=== PATIENT | male | born 1960 | race Caucasian/White ===

== ENCOUNTER → 2019-10-31 09:46 | Outpatient (CLI) | payer OTHER, SELFPAY ==
[2019-10-31 10:28] LABS: Add Manual Diff / Slide Review NO; Basophils Absolute Auto 100 /uL (0-100); Basophils Percent Auto 1.4 % (0-2); Eosinophils Absolute Auto 600 /uL (0-450); Eosinophils Percent Auto 16.8 % (2-4); Hematocrit 39.3 % (41-53); Hemoglobin 12.6 g/dL (13.5-17.5); Lymphocytes Absolute Auto 700 /uL (1100-4500); Lymphocytes Percent Auto 19.9 % (25-40); Mean Corpuscular Hemoglobin 23.8 PG (26-34); Mean Corpuscular Volume 74.5 fL (80-100); Monocytes Absolute Auto 500 /uL (0-900); Monocytes Percent Auto 12.8 % (3-14); Neutrophils Absolute Auto 1800 /uL (1500-7000); Neutrophils Percent Auto 49.1 % (50-75); Platelet Count 301 X10^3/uL (150-400); Red Blood Cell Count 5.27 X10^6/uL (4.5-5.9); Red Cell Distribution Width 17.6 % (11.6-14.8); White Blood Cell Count 3.7 X10^3/uL (4.5-11.0)
[2019-10-31 10:53] LABS: Alanine Aminotransferase 50 IU/L (<50); Albumin 4.2 g/dL (3.5-5.0); Albumin Globulin Ratio 1.4 (1.0-2.8); Alkaline Phosphatase 105 U/L (38-126); Aspartate Aminotransferase 54 IU/L (17-59); Bilirubin Total 0.3 mg/dL (0.2-1.3); Blood Urea Nitrogen 19 mg/dL (9-20); Calcium 9.4 mg/dL (8.4-10.2); Carbon Dioxide 28 mmol/L (22-32); Chloride 104 mmol/L (98-107); Cholesterol 133 mg/dL (140-199); Estimated Glomerular Filt Rate > 60.0 mL/min (>60); Glucose 96 mg/dL (70-100); HDL Cholesterol 22 mg/dL (40-60); HEMOLYSIS < 15 (0-50); LDL Cholesterol Calculated 89 mg/dL (<100); Potassium 4.6 mmol/L (3.4-5.1); Sodium 140 mmol/L (137-145); Total Protein 7.2 g/dL (6.3-8.2); Triglycerides 108 mg/dL (35-150)
[2019-10-31 11:22] LABS: HEMOLYSIS < 15 (0-50); Iron 43 ug/dL (49-181)
[2019-10-31 11:32] LABS: Percent Iron Saturation 9 % (20-50); Total Iron Binding Capacity 469 ug/dL (261-462); Transferrin 364 mg/dL (206-381)
== END ==
PROVIDERS: PCP Internal Medicine; Referring Provider Internal Medicine; Visit Provider Internal Medicine
DX: Z00.00 Encounter for general adult medical examination without abnormal findings (principal); K90.0 Celiac disease
CPT/HCPCS: 36415; 80053; 80061; 83540; 83550; 85025

== ENCOUNTER → 2020-01-17 13:25 | Outpatient (CLI) | payer OTHER, SELFPAY ==
[2020-01-17 14:43] LABS: Add Manual Diff / Slide Review NO; Basophils Absolute Auto 100 /uL (0-100); Basophils Percent Auto 1.3 % (0-2); Eosinophils Absolute Auto 400 /uL (0-450); Eosinophils Percent Auto 8.5 % (2-4); Hematocrit 39.6 % (41-53); Hemoglobin 12.7 g/dL (13.5-17.5); Lymphocytes Absolute Auto 800 /uL (1100-4500); Lymphocytes Percent Auto 19.1 % (25-40); Mean Corpuscular HGB Conc 32.2 % (30-36); Mean Corpuscular Hemoglobin 25.4 PG (26-34); Monocytes Absolute Auto 600 /uL (0-900); Monocytes Percent Auto 12.7 % (3-14); Neutrophils Absolute Auto 2600 /uL (1500-7000); Neutrophils Percent Auto 58.4 % (50-75); Platelet Count 306 X10^3/uL (150-400); Red Blood Cell Count 5.01 X10^6/uL (4.5-5.9); Red Cell Distribution Width 17.7 % (11.6-14.8); White Blood Cell Count 4.4 X10^3/uL (4.5-11.0)
[2020-01-17 14:54] LABS: Alanine Aminotransferase 30 IU/L (<50); Albumin 3.8 g/dL (3.5-5.0); Albumin Globulin Ratio 1.4 (1.0-2.8); Alkaline Phosphatase 82 U/L (38-126); Aspartate Aminotransferase 44 IU/L (17-59); Bilirubin Total 0.3 mg/dL (0.2-1.3); Bilirubin Unconjugated 0.1 mg/dL (0.0-1.1); Globulin 2.7 g/dL (1.7-4.1); HEMOLYSIS < 15 (0-50); Total Protein 6.5 g/dL (6.3-8.2)
== END ==
PROVIDERS: PCP Internal Medicine; Referring Provider Internal Medicine; Visit Provider Internal Medicine
DX: R74.8 Abnormal levels of other serum enzymes (principal); D72.829 Elevated white blood cell count, unspecified
CPT/HCPCS: 36415; 80076; 85025

== ENCOUNTER → 2020-03-29 16:05 | Outpatient (ROUT) | payer OTHER, SELFPAY ==
[2020-03-29 16:11] LABS: Add Manual Diff / Slide Review NO; Basophils Absolute Auto 100 /uL (0-100); Basophils Percent Auto 1.2 % (0-2); Eosinophils Absolute Auto 200 /uL (0-450); Eosinophils Percent Auto 4.8 % (2-4); Hematocrit 41.1 % (41-53); Hemoglobin 13.3 g/dL (13.5-17.5); Lymphocytes Absolute Auto 700 /uL (1100-4500); Lymphocytes Percent Auto 15.5 % (25-40); Mean Corpuscular HGB Conc 32.4 % (30-36); Mean Corpuscular Hemoglobin 26.6 PG (26-34); Mean Corpuscular Volume 82.2 fL (80-100); Monocytes Absolute Auto 600 /uL (0-900); Monocytes Percent Auto 12.5 % (3-14); Neutrophils Absolute Auto 3100 /uL (1500-7000); Platelet Count 268 X10^3/uL (150-400); Red Cell Distribution Width 16.4 % (11.6-14.8); White Blood Cell Count 4.7 X10^3/uL (4.5-11.0)
[2020-03-29 16:17] LABS: HEMOLYSIS 16 (0-50); Iron 88 ug/dL (49-181)
[2020-03-29 16:27] LABS: Percent Iron Saturation 21 % (20-50); Total Iron Binding Capacity 419 ug/dL (261-462); Transferrin 331 mg/dL (206-381)
== END ==
PROVIDERS: PCP Internal Medicine; Visit Provider Internal Medicine
DX: D64.9 Anemia, unspecified (principal)
CPT/HCPCS: 83540; 83550; 85025

== ENCOUNTER → 2021-01-29 14:44 | Outpatient (ROUT) | payer OTHER, SELFPAY ==
[2021-01-29 14:53] LABS: Add Manual Diff / Slide Review NO; Basophils Absolute Auto 0 /uL (0-100); Basophils Percent Auto 0.9 % (0-2); Eosinophils Absolute Auto 400 /uL (0-450); Eosinophils Percent Auto 9.7 % (2-4); Hematocrit 44.9 % (41-53); Hemoglobin 15.1 g/dL (13.5-17.5); Lymphocytes Absolute Auto 700 /uL (1100-4500); Lymphocytes Percent Auto 16.8 % (25-40); Mean Corpuscular HGB Conc 33.5 % (30-36); Mean Corpuscular Volume 89.5 fL (80-100); Monocytes Absolute Auto 500 /uL (0-900); Monocytes Percent Auto 12.6 % (3-14); Neutrophils Absolute Auto 2300 /uL (1500-7000); Platelet Count 258 X10^3/uL (150-400); Red Blood Cell Count 5.02 X10^6/uL (4.5-5.9); Red Cell Distribution Width 13.5 % (11.6-14.8); White Blood Cell Count 3.9 X10^3/uL (4.5-11.0)
[2021-01-29 14:58] LABS: HEMOLYSIS 16 (0-50); Iron 103 ug/dL (49-181)
[2021-01-29 15:03] LABS: Alanine Aminotransferase 39 IU/L (<50); Albumin 3.7 g/dL (3.5-5.0); Albumin Globulin Ratio 1.4 (1.0-2.8); Alkaline Phosphatase 80 U/L (38-126); Aspartate Aminotransferase 50 IU/L (17-59); BUN Creatinine Ratio 19.1 (6-22); Bilirubin Total 0.3 mg/dL (0.2-1.3); Blood Urea Nitrogen 17 mg/dL (9-20); Calcium 9.1 mg/dL (8.4-10.2); Carbon Dioxide 29 mmol/L (22-32); Chloride 105 mmol/L (98-107); Estimated Glomerular Filt Rate > 60.0 mL/min (>60); Globulin 2.6 g/dL (1.7-4.1); Glucose 82 mg/dL (70-100); HEMOLYSIS 18 (0-50); Potassium 4.3 mmol/L (3.4-5.1); Sodium 140 mmol/L (137-145); Total Protein 6.3 g/dL (6.3-8.2)
[2021-01-29 15:10] LABS: Percent Iron Saturation 26 % (20-50); Total Iron Binding Capacity 392 ug/dL (261-462); Transferrin 286 mg/dL (206-381)
== END ==
PROVIDERS: PCP Internal Medicine; Visit Provider Internal Medicine
DX: K90.0 Celiac disease (principal); D50.0 Iron deficiency anemia secondary to blood loss (chronic)
CPT/HCPCS: 80053; 83540; 83550; 85025

== ENCOUNTER → 2022-07-30 14:19 | Outpatient (CLI) | payer OTHER, SELFPAY ==
[2022-07-30 14:45] LABS: Hematocrit 39.3 % (41-53); Hemoglobin 13.3 g/dL (13.5-17.5); Mean Corpuscular HGB Conc 33.9 % (30-36); Mean Corpuscular Hemoglobin 28.6 PG (26-34); Mean Corpuscular Volume 84.4 fL (80-100); Platelet Count 276 X10^3/uL (150-400); Red Blood Cell Count 4.65 X10^6/uL (4.5-5.9); Red Cell Distribution Width 14.1 % (11.6-14.8); White Blood Cell Count 4.8 X10^3/uL (4.5-11.0)
[2022-07-30 20:01] LABS: TSH w/ Reflex to FT4 2.18 uIU/mL (0.47-4.68)
[2022-07-30 23:46] LABS: Alanine Aminotransferase 30 IU/L (<50); Albumin 4.1 g/dL (3.5-5.0); Albumin Globulin Ratio 1.5 (1.0-2.8); Alkaline Phosphatase 86 U/L (38-126); Aspartate Aminotransferase 40 IU/L (17-59); BUN Creatinine Ratio 25.6 (6-22); Bilirubin Total 0.2 mg/dL (0.2-1.3); Blood Urea Nitrogen 22 mg/dL (9-20); Calcium 8.8 mg/dL (8.4-10.2); Carbon Dioxide 29 mmol/L (22-32); Chloride 102 mmol/L (98-107); Cholesterol 124 mg/dL (140-199); Estimated Glomerular Filt Rate > 60 mL/min (>60); Globulin 2.7 g/dL (1.7-4.1); Glucose 71 mg/dL (80-110); HDL Cholesterol 24 mg/dL (40-60); HEMOLYSIS < 15 (0-50); LDL Cholesterol Calculated 73 mg/dL (<100); Potassium 4.4 mmol/L (3.4-5.1); Sodium 139 mmol/L (137-145); Total Protein 6.8 g/dL (6.3-8.2); Triglycerides 134 mg/dL (35-150)
[2022-07-31 00:16] LABS: Prostate Specific Antigen Scrn 1.88 ng/mL (0.1-4.0)
== END ==
PROVIDERS: PCP Internal Medicine; Referring Provider Internal Medicine; Visit Provider Internal Medicine
DX: Z00.00 Encounter for general adult medical examination without abnormal findings (principal); E78.5 Hyperlipidemia, unspecified; Z12.5 Encounter for screening for malignant neoplasm of prostate
CPT/HCPCS: 36415; 80053; 80061; 84443; 85027; G0103

== ENCOUNTER → 2023-07-29 08:42 | Outpatient (CLI) | payer OTHER, SELFPAY ==
[2023-07-29 09:56] LABS: Hematocrit 42.9 % (41-53); Hemoglobin 14.5 g/dL (13.5-17.5); Mean Corpuscular HGB Conc 33.8 % (30-36); Mean Corpuscular Hemoglobin 29.4 PG (26-34); Platelet Count 287 X10^3/uL (150-400); Red Blood Cell Count 4.93 X10^6/uL (4.5-5.9); Red Cell Distribution Width 14.4 % (11.6-14.8); White Blood Cell Count 5.5 X10^3/uL (4.5-11.0)
[2023-07-29 10:04] LABS: Alanine Aminotransferase 30 IU/L (<50); Albumin 4.5 g/dL (3.5-5.0); Albumin Globulin Ratio 1.4 (1.0-2.8); Alkaline Phosphatase 85 U/L (38-126); Aspartate Aminotransferase 46 IU/L (17-59); BUN Creatinine Ratio 21.7 (6-22); Bilirubin Total 0.5 mg/dL (0.2-1.3); Blood Urea Nitrogen 20 mg/dL (9-20); Calcium 9.6 mg/dL (8.4-10.2); Carbon Dioxide 30 mmol/L (22-32); Chloride 102 mmol/L (98-107); Cholesterol 122 mg/dL (140-199); Estimated Glomerular Filt Rate > 60 mL/min (>60); Globulin 3.2 g/dL (1.7-4.1); Glucose 85 mg/dL (80-110); HDL Cholesterol 29 mg/dL (40-60); HEMOLYSIS 18 (0-50); LDL Cholesterol Calculated 79 mg/dL (<100); Potassium 4.6 mmol/L (3.4-5.1); Sodium 138 mmol/L (137-145); Total Protein 7.7 g/dL (6.3-8.2); Triglycerides 70 mg/dL (35-150)
[2023-07-29 10:15] LABS: HEMOLYSIS < 15 (0-50); Iron 63 ug/dL (49-181)
[2023-07-29 10:24] LABS: Percent Iron Saturation 15 % (20-50); Total Iron Binding Capacity 409 ug/dL (261-462); Transferrin 327 mg/dL (206-381)
[2023-07-29 10:38] LABS: Ferritin 17 ng/mL (18-464)
== END ==
PROVIDERS: PCP Internal Medicine; Referring Provider Internal Medicine; Visit Provider Internal Medicine
DX: Z12.5 Encounter for screening for malignant neoplasm of prostate (principal); K90.0 Celiac disease; E78.5 Hyperlipidemia, unspecified; Z00.00 Encounter for general adult medical examination without abnormal findings; D50.9 Iron deficiency anemia, unspecified
CPT/HCPCS: 36415; 80053; 80061; 82728; 83540; 83550; 85027; G0103

== ENCOUNTER → 2024-01-11 11:32 | Outpatient (CLI) | payer OTHER, SELFPAY ==
--- NOTE | 2024-01-11 11:34 | DI.RAD.S_ITS ---
PROCEDURE: XR SKULL MIN 4V INDICATIONS: skull mass right TECHNIQUE: 4 view(s) of the skull acquired. COMPARISON: None. FINDINGS: Bones: No fractures. No suspicious bony lesions. Visualized sinuses appear clear. Soft tissues: No soft tissue calcifications. No suspicious soft tissue densities. IMPRESSION: Unremarkable skull radiographs Approved by: Asher Dalton M.D. on 01/11/2024 at 17:39
--- NOTE | 2024-01-11 11:34 | DI.RAD.S_ITS ---
PROCEDURE: XR TIBIA FUBULA RT 2V INDICATIONS: leg pain TECHNIQUE: 2 views of the tibia and fibula were acquired. COMPARISON: None. FINDINGS: Bones: No fractures or dislocations. No suspicious bony lesions. Soft tissues: No suspicious soft tissue calcifications or masses. IMPRESSION: No acute bony abnormality. Approved by: Asher Dalton M.D. on 01/11/2024 at 17:40
--- NOTE | 2024-01-11 11:34 | DI.RAD.S_ITS ---
PROCEDURE: XR KNEE RT 3V INDICATIONS: leg pain TECHNIQUE: 3 views of the knee were acquired. COMPARISON: None. FINDINGS: Bones: No fractures or dislocations. No suspicious bony lesions. Soft tissues: No joint effusion. No suspicious soft tissue calcifications. IMPRESSION: No acute bony abnormality or significant effusion. Approved by: Asher Dalton M.D. on 01/11/2024 at 17:40
[2024-01-11 12:48] LABS: Add Manual Diff / Slide Review NO; Basophils Absolute Auto 0 /uL (0-100); Basophils Percent Auto 0.6 % (0-2); Eosinophils Absolute Auto 200 /uL (0-450); Eosinophils Percent Auto 3.5 % (2-4); Hematocrit 44.6 % (41-53); Hemoglobin 15.3 g/dL (13.5-17.5); Lymphocytes Absolute Auto 600 /uL (1100-4500); Lymphocytes Percent Auto 9.4 % (25-40); Mean Corpuscular HGB Conc 34.3 % (30-36); Mean Corpuscular Hemoglobin 29.3 PG (26-34); Mean Corpuscular Volume 85.6 fL (80-100); Monocytes Absolute Auto 700 /uL (0-900); Monocytes Percent Auto 11.2 % (3-14); Neutrophils Absolute Auto 4900 /uL (1500-7000); Neutrophils Percent Auto 75.3 % (50-75); Platelet Count 315 X10^3/uL (150-400); Red Blood Cell Count 5.21 X10^6/uL (4.5-5.9); Red Cell Distribution Width 13.8 % (11.6-14.8); White Blood Cell Count 6.5 X10^3/uL (4.5-11.0)
[2024-01-11 13:19] LABS: Alanine Aminotransferase 26 IU/L (<50); Albumin 4.5 g/dL (3.5-5.0); Albumin Globulin Ratio 1.5 (1.0-2.8); Alkaline Phosphatase 94 U/L (38-126); Aspartate Aminotransferase 60 IU/L (17-59); BUN Creatinine Ratio 25.3 (6-22); Bilirubin Total 0.5 mg/dL (0.2-1.3); Blood Urea Nitrogen 20 mg/dL (9-20); Calcium 9.6 mg/dL (8.4-10.2); Carbon Dioxide 33 mmol/L (22-32); Chloride 99 mmol/L (98-107); Estimated Glomerular Filt Rate > 60 mL/min (>60); Globulin 3.1 g/dL (1.7-4.1); Glucose 101 mg/dL (80-110); HEMOLYSIS < 15 (0-50); Potassium 4.3 mmol/L (3.4-5.1); Sodium 139 mmol/L (137-145); Total Protein 7.6 g/dL (6.3-8.2)
== END ==
PROVIDERS: PCP Internal Medicine; Referring Provider Internal Medicine; Visit Provider Internal Medicine
DX: M79.661 Pain in right lower leg (principal); M89.8X8 Other specified disorders of bone, other site; R03.0 Elevated blood-pressure reading, without diagnosis of hypertension
CPT/HCPCS: 36415; 70260; 73562; 73590; 80053; 85025

== ENCOUNTER → 2024-01-14 14:09 | Outpatient (CLI) | payer OTHER, SELFPAY ==
--- NOTE | 2024-01-14 14:10 | DI.CT.S_ITS ---
PROCEDURE: CT HEAD/BRAIN WO/W CON INDICATIONS: SKULL MASS RIGHT TECHNIQUE: 4.5 mm thick angled axial sections acquired from the foramen magnum to the vertex before and after the administration of intravenous contrast, with coronal and sagittal reformats. For radiation dose reduction, the following was used: automated exposure control, adjustment of mA and/or kV according to patient size. COMPARISON: [facility], CR, XR SKULL MIN 4V, 01/11/2024, 11:45. FINDINGS: Image quality: Excellent. CSF Spaces: Basal cisterns are patent. No extra-axial fluid collections. Ventricles are normal in size and shape. Brain: No midline shift. No intracranial bleeds or masses. No abnormal intracranial enhancement. Mares-white interface appears normal. Skull and face: There is an overall appearance of prominent soft tissues within the posterior left neck. Ill-defined enhancement is present. No visualized adjacent osseous erosion. Sinuses: Visualized sinuses and mastoids are clear. IMPRESSION: Ill-defined appearance of thickened muscular and soft tissue structures in the posterior right neck. This may represent infiltrative process. No adjacent osseous erosion. MRI neck with without contrast is recommended for further evaluation. Dictated by: Gilda Li M.D. on 01/14/2024 at 17:02 Approved by: Gilda Li M.D. on 01/14/2024 at 17:05
== END ==
PROVIDERS: PCP Internal Medicine; Referring Provider Internal Medicine; Visit Provider Internal Medicine
DX: M89.8X8 Other specified disorders of bone, other site (principal)
CPT/HCPCS: 70470; Q9967

== ENCOUNTER → 2024-01-20 18:31 | Outpatient (CLI) | payer OTHER, SELFPAY ==
--- NOTE | 2024-01-20 18:32 | DI.MRI.S_ITS ---
PROCEDURE: MR ORBITS FACE NECK WO/W CON INDICATIONS: posterior right neck mass, followup CT study TECHNIQUE: Sagittal/axial/coronal T1 spin echo and STIR. After the administration of contrast, axial/coronal/sagittal T1 fast spin echo with fat saturation through the neck. COMPARISON: [facility], CT, CT HEAD/BRAIN WO/W CON, 01/14/2024, 14:23. FINDINGS: Image quality: Excellent. Lymph nodes: Enlarged right level 2 lymph nodes, for example a lymph node measuring 1.4 centimeters in short axis (04/14). Vessels: Visualized vasculature appears normal, with normal flow voids and enhancement. Neck spaces: Ill-defined STIR hyperintense enhancing masslike soft tissue within the right lateral neck just below the calvarium. This measures approximately 5.1 x 5.8 x 4.0 centimeters (TV by AP by cc). There is invasion into the paraspinal musculature. Displacement of the sternocleidomastoid laterally. There appears to be invasion into the right occipital condyle and adjacent skull base with abnormal marrow signal. No definite invasion into the cervical spine is identified. The oropharynx, nasopharynx and pharynx are unremarkable, without mucosal lesions seen. Vocal cords, false vocal cords, pyriform sinuses, epiglottis, vallecula, and tongue base all appear normal. Glands: The parotid and submandibular glands appear normal. Thyroid gland demonstrates no significant abnormality.. Miscellaneous: Visualized brain and orbits appear normal. Lung apices appear clear. Superficial soft tissues appear normal. Visualized sinuses and mastoids appear clear. Bones: Invasion of the right occipital condyle and adjacent skull base as above. Marrow otherwise has normal overall signal. Degenerative changes of the spine. IMPRESSION: Enhancing masslike soft tissue within the right lateral superior neck with invasion into the paraspinal musculature and right occipital condyle. Findings are concerning for malignancy such as a soft tissue sarcoma. Recommend biopsy for further evaluation. Enlarged lymph nodes within the right neck, concerning for metastatic disease. Dictated by: Stephan Salvador M.D. on 01/21/2024 at 9:24 Approved by: Stephan Salvador M.D. on 01/21/2024 at 9:36
--- NOTE | 2024-01-20 18:34 | DI.MRI.S_ITS ---
PROCEDURE: MR LOWER LEG RT WO/W CON INDICATIONS: right lower leg pain TECHNIQUE: Noncontrast coronal T1 spin echo and STIR, sagittal T1 spin echo with fat saturation and STIR, axial T1 spin echo and T2 fast spin echo with fat saturation. After the administration of contrast, axial/sagittal/coronal T1 spin echo with fat saturation through the right lower leg . COMPARISON: [facility], CR, XR TIBIA FIBULA RT 2V, 01/11/2024, 11:45. FINDINGS: Image quality: Excellent. Bones: The visualized bone marrow demonstrates normal signal on all sequences. The overlying cortex appears intact. No abnormal intraosseous enhancement. Soft tissues: No soft tissue masses are visualized. The scanned muscles demonstrate normal overall bulk and internal signal. Subcutaneous tissues appear normal as well. No abnormal soft tissue enhancement. IMPRESSION: Unremarkable MRI examination of right lower leg without and with contrast. No finding to explain patient's symptoms. Dictated by: Cedric Skaggs M.D. on 01/20/2024 at 20:06 Approved by: Cedric Skaggs M.D. on 01/20/2024 at 20:11
== END ==
PROVIDERS: PCP Internal Medicine; Referring Provider Internal Medicine; Visit Provider Internal Medicine
DX: R22.1 Localized swelling, mass and lump, neck (principal); M79.604 Pain in right leg; R59.0 Localized enlarged lymph nodes
CPT/HCPCS: 70543; 73720; A9579

== ENCOUNTER 2024-02-24 08:49 | Day surgery (SDC) | payer OTHER, SELFPAY ==
[2024-02-19 08:19] VITALS: BMI 23.1
--- NOTE | 2024-02-23 12:33 | PM.HP.1 ---
History of Present Illness History of Present Illness Date Patient Seen: 02/23/24 Time Patient Seen: 12:33 Chief complaint: Port-A-Cath Insertion Narrative: 63-year-old man with a history of lymphoma here for Port-A-Cath placement. No previous indwelling central venous catheters. He has bulky lymphadenopathy of his right neck. 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 Elevated blood pressure reading without diagnosis of hypertension Right leg pain BPH w urinary obs/LUTS Iron deficiency anemia Dyslipidemia Allergic rhinitis Wears glasses Plantar warts (~2015) Ankle pain (~2009) Chicken pox (~1966) Celiac disease (~2004) Surgical History Anesthesia History of tonsillectomy (~1965) History of vasectomy (~1992) History of third molar tooth extraction Family History Father Hypertension High cholesterol Diabetes mellitus History of heart disease Grandmother Stroke Mother Dementia Sister Cancer Grandfather History of heart disease Grandfather Cancer Grandmother Diabetes mellitus Hypertension Social History details: (Mitzi), 2 daughters in college, retired inventory household members: spouse Smoking Status: Never smoker alcohol intake: never Meds Home Medications and Allergies Home Medications Medication Instructions Recorded Confirmed Type loratadine 10 mg capsule (Claritin PRN ##0 02/12/17 02/16/24 History Liqui-Gel) oxycodone-acetaminophen 5 mg-325 1 tab PO Q6H PRN pain #120 tabs 01/26/24 02/24/24 Rx mg tablet gabapentin 300 mg capsule 900 mg (3 x 300 mg) PO TID #270 02/18/24 02/24/24 Rx caps Allergies Allergy/AdvReac Type Severity Reaction Status Date / Time No Known Drug Allergies Allergy Verified 02/16/24 10:15 Exam Narrative Exam Narrative: General adult man alert oriented no acute distress Neck right neck bulky lymphadenopathy. 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 Plan is for left neck internal jugular vein access with ultrasound as right neck has bulky lymphadenopathy. If this is not accessible then we will proceed with subclavian access. Overview of the operation discussed. Operative risks including hemorrhage, infection, pneumothorax, mechanical device failure were reviewed. His questions have been answered and he is in agreement with this plan. He provides his consent to proceed
--- NOTE | 2024-02-24 | DI.RAD.S_ITS ---
PROCEDURE: XR CHEST 1V INDICATIONS: PORT A CATH PLACEMENT TECHNIQUE: One view of the chest was acquired. COMPARISON: None. FINDINGS: Surgical changes and devices: Left chest wall Port-A-Cath tip is in SVC.. Lungs and pleura: Lungs are clear. No pleural effusions or pneumothorax. Mediastinum: Mediastinal contours appear normal. Heart size is normal. Bones and chest wall: No suspicious bony lesions. Overlying soft tissues appear unremarkable. IMPRESSION: Left chest wall Port-A-Cath tip is in SVC. No focal infiltrate, pleural effusion or pneumothorax. Dictated by: Cedric Skaggs M.D. on 02/24/2024 at 16:21 Approved by: Cedric Skaggs M.D. on 02/24/2024 at 16:25
[2024-02-24 09:11] VITALS: BP 109/61; PULSE 101; RESP 18; TEMP 38.2; O2SAT 95; BMI 23.1
[2024-02-24] MEDS: LACTATED RINGERS 1,000 ML 21 ML IV (09:20)
[2024-02-24] MEDS: CEFAZOLIN 2 GM/100 ML PREMIX 100 ML IV (10:35)
--- NOTE | 2024-02-24 10:45 | SUR.OPER ---
Supine, head on gel donut. Arms padded with gel pads, tucked at sides, towel roll under shoulders. Safety belt at thigh. Legs uncrossed.
[2024-02-24] MEDS: BUPIVACAINE 0.25% (PF) VIAL 30 ML INJ (10:48)
[2024-02-24] MEDS: HEPARIN 5,000 UNIT, SODIUM CHLORIDE 0.9% 50 ML IV (10:48)
--- NOTE | 2024-02-24 11:20 | PM.OP.1 ---
Operative Date/Time/Diagnoses Date of procedure: 02/24/24 Time of procedure: 11:20 Pre-op diagnosis: lymphoma Post-op diagnosis: same Procedure & Clinicians Procedure: port a cath placement with ultrasound guidance Same procedure as scheduled: Yes Indications: 63M with lymphoma here for a port a cath placement Surgeon: Guanakito Arias Click Yes if Unassisted: Yes Anesthesia Type: General Operative Notes Findings: tip of the catheter within the svc Specimen(s): none sent Estimated Blood Loss (mL): 10 Procedure in detail: Patient was brought to the operating room placed supine on table. Bilateral lower extremity compressive devices were applied. General anesthesia was induced and he was intubated with an LMA. He was then prepped and draped in usual sterile fashion. Time-out was performed ensure the correct patient procedure necessary equipment within the operating room. He received 2 g of Ancef prior to incision. Under ultrasound guidance the left internal jugular vein was accessed under direct visualization. The guidewire was then threaded through the needle. Its placement was then confirmed using fluoroscopy. The dilator was then placed over the guidewire. The catheter was then inserted through the sheath. Placement was again confirmed with fluoroscopy. A subcutaneous pocket was made in the right chest wall. The tunneler device was used to move the catheter from the neck to the chest pocket. The port was attached after it was primed with heparined saline. The port was tested to ensure that it flushed easily and had good blood return. The port was then secured to the underlying fascia using interupted 0 Prolene suture. Hemostasis was achieved. The wound was irrigated with sterile saline. The subcutaneous tissues were reapproximated with the 3 0 Vicryl and then skin closed with 4-0 Monocryl. The skin was sealed with Dermabond. Patient tolerated procedure well. The sponge and instrument count at the end operation was correct. Patient emerged from general anesthesia was extubated and taken to the postoperative care unit in stable condition Complications: none Post-operative Condition: stable Disposition: same day surgery
[2024-02-24 11:23] VITALS: BP 96/58; PULSE 98; RESP 15; TEMP 37.1; O2SAT 95
[2024-02-24 11:28] VITALS: BP 98/57; PULSE 96; RESP 15; TEMP 37.1; O2SAT 95
[2024-02-24 11:33] VITALS: BP 93/52; PULSE 91; RESP 15; TEMP 37.2; O2SAT 96
[2024-02-24 11:47] VITALS: BP 101/59; PULSE 89; RESP 18; TEMP 37.2; O2SAT 95
[2024-02-24 12:27] VITALS: TEMP 37.5
== END 2024-02-24 12:25 | disposition home or self-care (01) ==
PROVIDERS: PCP Internal Medicine; Referring Provider Surgery; Visit Provider Surgery
PROC: (CPT 36561; principal; 2024-02-24 10:15)
DX: C84.7 Anaplastic large cell lymphoma, ALK-negative (principal); Z45.2 Encounter for adjustment and management of vascular access device
CPT/HCPCS: 36561; 71045; 76000; C1788; J0690; J1100; J1644; J2405; J2704; J3010